=== PATIENT | male | born 1970 | race Caucasian/White ===

== ENCOUNTER 2016-10-23 18:33 | Emergency (ER) | payer OTHER ==
[2016-10-23 18:56] VITALS: BP 125/75
[2016-10-23] MEDS ORDERED: DEXAMETHASONE 10 MG/ML VIAL PO STA (19:03)
--- NOTE | 2016-10-23 19:04 | ED Physician Documentation ---
PD HPI SKIN - Stated complaint Stated Complaint: RT ARM POSS BUG BITE - Chief complaint Chief Complaint: Wound - History obtained from History obtained from: Patient - History of Present Illness Timing - onset: Other (Thinks he got bitten by a mosquito to the right forearm last night and is worried about significant localized swelling. No fevers. No pain. It is itchy.) Review of Systems Constitutional: denies: Fever, Chills Respiratory: denies: Dyspnea, Cough GI: denies: Abdominal Pain, Nausea PD PAST MEDICAL HISTORY - Past Medical History Past Medical History: No - Past Surgical History Past Surgical History: No - Present Medications Home Medications: Ambulatory Orders Medication Instructions Recorded Confirmed No Known Home Medications [No 10/23/16 10/23/16 Known Home Medications] - Allergies Allergies/Adverse Reactions: Allergies Allergy/AdvReac Type Severity Reaction Status Date / Time No Known Drug Allergies Allergy Verified 10/23/16 18:55 - Social History Does the pt smoke?: Yes Smoking Status: Current some day smoker Does the pt drink ETOH?: No Does the pt have substance abuse?: No - Immunizations Immunizations are current?: Yes PD ED PE NORMAL - Vitals Vital signs reviewed: Yes - General General: Alert and oriented X 3, No acute distress - Extremities Extremities: Other (On the posterior medial right forearm proximally there is a 3 x 4 cm area of angioedema with warmth but no cellulitis, it is well- circumscribed, it is consistent with a mosquito bite. No tenderness or fluctuance.) - Neuro Neuro: Alert and oriented X 3, Normal speech Results - Vitals Vitals: Vital Signs - 24 hr 10/23/16 18:53 Temperature 36.3 C L Heart Rate 78 Respiratory 16 Rate Blood Pressure 125/75 O2 Saturation 98 PD MEDICAL DECISION MAKING - ED course ED course: At this juncture it is really most consistent with a mosquito bite with significant localized angioedema, not infection. He is administered an oral steroid and given signs and symptoms to watch out for. Departure - Departure Disposition: 01 Home, Self Care Clinical Impression: Mosquito bite Qualifiers: Encounter type: initial encounter Qualified Code(s): W57.XXXA - Bitten or stung by nonvenomous insect and other nonvenomous arthropods, initial encounter Condition: Good Record reviewed to determine appropriate education?: Yes Instructions: ED Bite Mosquito Comments: Return if the swelling goes above the elbow, if it becomes painful, or if you run a fever.
[2016-10-23] MEDS ORDERED: DEXAMETHASONE 10 MG/ML VIAL ONE (19:06)
[2016-10-23] MEDS ORDERED: CHERRY SYRUP 10 ML UDC PO ONE (19:07)
== END 2016-10-23 19:12 | disposition home or self-care (01) ==
LOC: ED 18:33
DX: S50.861A Insect bite (nonvenomous) of right forearm, initial encounter (principal); W57.XXXA Bitten or stung by nonvenomous insect and other nonvenomous arthropods, initial encounter; F17.200 Nicotine dependence, unspecified, uncomplicated
CPT/HCPCS: 99283

== ENCOUNTER 2016-10-24 08:32 | Emergency (ER) | payer OTHER ==
[2016-10-24] MEDS ORDERED: LIDOCAINE 2% 10 ML MDV ONE (08:59)
[2016-10-24] MEDS ORDERED: cefTRIAXone 1 GM VIAL IM STA (10:39)
[2016-10-24] MEDS ORDERED: LIDOCAINE 1% 2 ML VIAL ONE (10:41)
[2016-10-24] MEDS ORDERED: cefTRIAXone 1 GM VIAL ONE (10:41)
== END 2016-10-24 11:31 | disposition home or self-care (01) ==
DX: L03.113 Cellulitis of right upper limb (principal); F17.200 Nicotine dependence, unspecified, uncomplicated

== ENCOUNTER 2016-12-23 15:03 | Emergency (ER) | payer OTHER ==
[2016-12-23 15:13] VITALS: BP 140/81
--- NOTE | 2016-12-23 15:15 | ED Physician Documentation ---
PD HPI LOWER EXT INJURY - Stated complaint Stated Complaint: L KNEE INJ - Chief complaint Chief Complaint: Ext Problem - History obtained from History obtained from: Patient - History of Present Illness PD HPI LOW EXT INJURY LOCATION: Left, Knee Type of injury: Fall (fell forward and struck knee with some twist too. Pain anterior knee, but has increased.) Timing - onset: How many days ago (5) Timing - details: Abrupt onset, Still present Improved by: Rest Worsened by: Moving, Palpating Associated symptoms: Swelling (the past couple days more.). No: Weakness, Numbness Similar symptoms before: Has not had sx before Recently seen: Clinic (was walking on it carefully after injury. Seen at [facility] with xray that was okay, per patient (no fractures). Got PT today and it is hurting more. Was not given brace nor crutches and he says it hurts to walk.) Review of Systems Constitutional: denies: Fever, Chills Skin: denies: Abrasion (s), Laceration (s) Neurologic: denies: Focal weakness, Numbness PD PAST MEDICAL HISTORY - Past Medical History Musculoskeletal: None - Past Surgical History Past Surgical History: No - Present Medications Home Medications: Ambulatory Orders Medication Instructions Recorded Confirmed HYDROcod/ACETAM 5/325 [[place] 5/325] 1 tab PO Q6H PRN #15 tablet 12/23/16 Naproxen [Naprosyn] 500 mg PO BID PRN #20 tablet 12/23/16 Oxcarbazepine [Trileptal] 1 tab PO BID 12/23/16 12/23/16 - Allergies Allergies/Adverse Reactions: Allergies Allergy/AdvReac Type Severity Reaction Status Date / Time No Known Drug Allergies Allergy Verified 12/23/16 15:12 - Social History Does the pt smoke?: Yes Smoking Status: Current some day smoker Does the pt drink ETOH?: No Does the pt have substance abuse?: No - Immunizations Immunizations are current?: Yes PD ED PE NORMAL - Vitals Vital signs reviewed: Yes - General General: Alert and oriented X 3, No acute distress, Well developed/nourished, Other (limping gait) - Derm Derm: Normal color, Warm and dry, No rash - Extremities Extremities: Other (left knee with tenderness in suprapatellar area with some effusion. Mild warmth, no redness. Stress testing ligaments is without laxity nor focal pain (all the stresses hurt some, per patient). No joint effusion per se. ) - Neuro Neuro: Alert and oriented X 3, No motor deficit, No sensory deficit Results - Vitals Vitals: Oxygen O2 Source Room air PD MEDICAL DECISION MAKING - ED course Complexity details: considered differential, d/w patient Departure - Departure Disposition: 01 Home, Self Care Clinical Impression: Left knee injury Qualifiers: Encounter type: initial encounter Qualified Code(s): S89.92XA - Unspecified injury of left lower leg, initial encounter Bursitis Qualifiers: Bursitis location: knee Knee bursitis location: suprapatellar bursitis Laterality: left Qualified Code(s): M70.52 - Other bursitis of knee, left knee Condition: Stable Record reviewed to determine appropriate education?: Yes Instructions: ED Bursitis, ED Sprain Knee Follow-Up: Elmira Mckeon MD [Primary Care Provider] - Prescriptions: Naproxen [Naprosyn] 500 mg PO BID PRN #20 tablet PRN Reason: Pain HYDROcod/ACETAM 5/325 [[place] 5/325] 1 tab PO Q6H PRN #15 tablet PRN Reason: Pain Comments: Nabil wrap for the swelling. I would not do a knee brace at this point as it does not sound like the main ligaments are probably more inflammation of the bursa or tendon. Some gentle motion is good for those. He could use crutches for partial weightbearing to reduce discomfort. Naproxen twice daily for the next 7-10 days. Add Tylenol or hydrocodone if needed for pain. Follow-up with your primary care in 3 or 4 days. Forms: Activity restrictions Discharge Date/Time: 12/23/16 16:18
[2016-12-23] MEDS ORDERED: IBUPROFEN 600 MG TABLET PO STA (15:46)
[2016-12-23] MEDS ORDERED: ACETAMINOPHEN 325 MG TABLET PO STA (15:46)
[2016-12-23] MEDS ORDERED: IBUPROFEN 600 MG TABLET PO ONE (15:54)
[2016-12-23] MEDS ORDERED: ACETAMINOPHEN 325 MG TABLET PO ONE (15:54)
== END 2016-12-23 16:18 | disposition home or self-care (01) ==
LOC: ED 15:03
DX: S89.92XA Unspecified injury of left lower leg, initial encounter (principal); W19.XXXA Unspecified fall, initial encounter; X50.1XXA Overexertion from prolonged static or awkward postures, initial encounter; M70.52 Other bursitis of knee, left knee; F17.200 Nicotine dependence, unspecified, uncomplicated
CPT/HCPCS: 99283; A9270

== ENCOUNTER 2018-07-12 08:00 | Outpatient (CLI) | payer OTHER ==
[2018-07-12 13:12] LABS: BASOPHILS % (AUTO) 0.6 %; EOSINOPHILS # (AUTO) 0.1 10^3/uL (0.0-0.7); EOSINOPHILS % (AUTO) 1.5 %; HGB - HEMOGLOBIN 15.1 g/dL (14.0-18.0); LYMPHOCYTES # (AUTO) 2.5 10^3/uL (1.5-3.5); LYMPHOCYTES % (AUTO) 35.1 %; MEAN CORPUSCULAR HEMOGLOBIN 29.5 pg (27.0-31.0); MEAN CORPUSCULAR HGB CONC 33.8 g/dL (32.0-36.0); MEAN CORPUSCULAR VOLUME 87.1 fL (80.0-94.0); MONOCYTES # (AUTO) 0.6 10^3/uL (0.0-1.0); MONOCYTES % (AUTO) 7.8 %; NEUTROPHILS # (AUTO) 3.9 10^3/uL (1.5-6.6); PLT - PLATELET COUNT 361 10^3/uL (130-450); RED BLOOD COUNT 5.13 10^6/uL (4.70-6.10); RED CELL DISTRIBUTION WIDTH 13.2 % (12.0-15.0); WHITE BLOOD COUNT 7.2 x10^3/uL (4.8-10.8)
[2018-07-12 13:20] LABS: ALBUMIN 4.5 g/dL (3.2-5.5); ALBUMIN/GLOBULIN RATIO 1.4 (1.0-2.2); ALKALINE PHOSPHATASE 60 IU/L (42-121); ALT ALANINE AMINOTRANSFERASE 37 IU/L (10-60); AST ASPARTATE AMINOTRANSFERASE 23 IU/L (10-42); BILIRUBIN,TOTAL 0.8 mg/dL (0.2-1.0); BUN - BLOOD UREA NITROGEN 14 mg/dL (6-20); CALCIUM 9.6 mg/dL (8.5-10.3); CARBON DIOXIDE - CO2 24 mmol/L (21-32); CHLORIDE 106 mmol/L (101-111); CHOL/HDL RATIO 3.6 (<5.0); CHOLESTEROL 184 mg/dL; GFR - MDRD 80 (>89); GLUCOSE 104 mg/dL (70-100); HDL CHOLESTEROL 51 mg/dL; LDL CHOLESTEROL,CALCULATED 106 mg/dL; LDL/HDL RATIO 2.1 (<3.6); SODIUM 138 mmol/L (135-145); TOTAL PROTEIN 7.7 g/dL (6.7-8.2); VLDL CHOLESTEROL 27 mg/dL
== END 2018-07-12 23:59 | disposition home or self-care (01) ==
LOC: LAB.WCP 08:00
PROVIDERS: ATTEND Family Medicine
DX: Z00.00 Encounter for general adult medical examination without abnormal findings (principal)
CPT/HCPCS: 36415; 80050; 80061; 83721